=== PATIENT | female | born 1935 | race Caucasian/White ===

== ENCOUNTER 2019-07-26 11:22 | Emergency (ER) | payer OTHER ==
[~2019-07-26] VITALS: Ht 152.4 cm; Wt 58.1 kg
[2019-07-26] MEDS ORDERED: SINUS (13:07)
[2019-07-26] MEDS ORDERED: ERYTHROMYCIN500 M1 (13:07)
[2019-07-26] MEDS ORDERED: PROAIR HFA8.5 GM (13:08)
[2019-07-26] MEDS ORDERED: NASAL MIST126 ML (13:08)
== END 2019-07-26 17:47 | disposition home or self-care (01) ==
LOC: ER 11:22
DX: J45.998 Other asthma (principal); B34.9 Viral infection, unspecified

== ENCOUNTER 2023-05-09 08:22 | Outpatient (CLI) | payer OTHER ==
[~2023-05-09 08:22] MED LIST: ERYTHROMYCIN500 M1; NASAL MIST126 ML; PROAIR HFA8.5 GM; SINUS
== END 2023-05-09 08:29 | disposition home or self-care (01) ==
LOC: RX STUDY 08:22
PROVIDERS: ATTEND Internal Medicine Gastroenterology
DX: R13.0 Aphagia (principal); R10.13 Epigastric pain